=== PATIENT | female | born 1960 | race Caucasian/White ===

== ENCOUNTER → 2020-06-18 14:17 | Outpatient (BNVA) | payer BC, SELFPAY | PROVIDERS: Family Provider Nurse Practitioner Family; PCP Registered Nurse; Referring Provider Registered Nurse; Visit Provider Urology | DX: R33.9 Retention of urine, unspecified (principal); N39.0 Urinary tract infection, site not specified | CPT/HCPCS: 81003; 87086 ==

== ENCOUNTER → 2020-07-31 10:12 | Outpatient (BNVA) | payer BC, SELFPAY | PROVIDERS: Family Provider Nurse Practitioner Family; PCP Registered Nurse; Visit Provider Urology | DX: N39.0 Urinary tract infection, site not specified (principal); R39.15 Urgency of urination | CPT/HCPCS: 81003 ==

== ENCOUNTER → 2021-02-28 09:05 | Outpatient (BNVA) | payer BC, SELFPAY | PROVIDERS: Family Provider Nurse Practitioner Family; PCP Registered Nurse; Visit Provider Surgery | DX: R15.9 Full incontinence of feces (principal); Z20.822 Contact with and (suspected) exposure to COVID-19 | CPT/HCPCS: 87635 ==

== ENCOUNTER 2021-03-06 06:46 | Day surgery (SDC) | payer BC, SELFPAY ==
[2021-03-01 11:49] VITALS: BMI 23.8
--- NOTE | 2021-03-06 06:43 | P.HP_ITS ---
Same Day Surgery H&P Indication for Procedure/HPI DATE OF PROCEDURE: March 06, 2021 CHIEF COMPLAINT/INDICATIONFOR SURGICAL PROCEDURE: Loose stools PREOP DIAGNOSIS: Change in bowel habits PLANNED PROCEDRUE: Operation Date: 03/06/21 07:30 Proposed Procedures p Colonoscopy 99827 R15.9(Not Applicable) - Jose Angel Purcell MD This is a 60 years old female patient referred to my practice with history of loose stools, she reports accidents intermittently where she is not able to have controlled on her feces and she also reports issues with her bladder as well. Patient mentioned that she had a 10 pounds baby and that was many years ago and she thinks that caused some issues with her bowel control.Patient otherwise denies any perineal or perianal or anal traumas.Never had a colonoscopy. She lost about 16 pounds unintentionally and she denies any bleeding per rectum or history of colon cancer. Patient reports that never had any kind of work-up for potential fecal incontinence or otherwise. Interim history 02/26/2021 Patient comes today for colonoscopy. ROS All systems have been reviewed negative except as per the above or per problem list Medications/Allergies* Home Medications Medication Instructions Recorded Confirmed Type lactobacillus combination no.8 3 3,000 mmu cells PO DAILY 07/31/20 03/01/21 History billion cell capsule Allergies/Adverse Reactions Allergy/AdvReac Type Severity Reaction Status Date / Time alfuzosin Allergy Unknown Unknown Verified 03/06/21 07:40 cortisone Allergy Unknown ALGY-Hives Verified 03/06/21 07:40 tamsulosin Allergy Unknown ADR/ALGY-Pa Verified 03/06/21 07:40 lpitations shrimp Allergy ADR-Nausea Verified 03/06/21 07:40 Pertinent History/Comorbid Conditions* Medical History (Updated 09/21/20 @ 13:26 by Jose Angel Purcell MD) Recurrent UTI Urgency of urination Family History (Updated 06/18/20 @ 09:44 by Veena Siddiqui RN) Diabetes Mother Chronic kidney disease (CKD) Mother Father Cancer Mother liver Father prostate Social History Smoking and tobacco status: never smoked Alcohol intake: never Current occupational status: employed Pertinent Exam Findings alert, oriented x 3, clear to auscultation bilaterally, regular rate & rhythm and procedure specific exam findings (Abdominal examination nontender nondistended soft) Recommendations Surgery/Procedure today (Colonoscopy with possible biopsy) Other Plans: Plan of care; After thorough history and physical examination and reviewing the chart, plan to perform screening colonoscopy. I discussed with the patient in details the risks,benefits,alternatives and indications.The risk of aspiration, bleeding, soft tissue injury, perforation of the colon and other potential concomitant complications were explained to the patient in details,also the potential need for Laproscoy/Laparotomy to repair any related complications including but not limited to colectomy and or Closotomy.The patient understood this well and did agree to proceed. Rationale was carefully and clearly discussed with the patient.Appropriate informed consent have been reviewed and signed All questions have been answered and all concerns have been addressed to patient's satisfaction. 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
--- NOTE | 2021-03-06 06:59 | ANES.PREANE2 ---
Pre-Anesthetic Assessment Pre-Anesthetic Assessment: Height/Weight: Height 1.57 m Weight 58.967 kg Preop Diagnosis: Change in bowel habits Proposed Procedure: Operation Date: 03/06/21 07:30 Proposed Procedures p Colonoscopy 06983 R15.9(Not Applicable) - Jose Angel Purcell MD Familial anesthetic complications: mother had PONV Was Beta Ranjana taken within 24 hours: N/A Was Clonidine taken within 24 hours: N/A Last intake: > 8 hrs Social: Social History: No alcohol and No tobacco Exam: Pre-Anes Outpt Exam: alert, oriented x 3, clear to auscultation bilaterally and regular rate & rhythm Airway: Cervical ROM: WNL MP: 1 Dentition: Partials Anesthetic Plan: ASA status: 1 Anesthesia: MAC Risk of > 500 ml blood loss (7ml/kg in children): No PFSH Anesthesia PFSH: Medical History Recurrent UTI Urgency of urination Family History Mother Cancer liver Diabetes Chronic kidney disease (CKD) Father Cancer prostate Chronic kidney disease (CKD) Social History Smoking and tobacco status: never smoked Alcohol intake: never Current occupational status: employed Data Anesthesia Cardiac Studies: No Data to Display
[2021-03-06 07:09] VITALS: BP 141/88; PULSE 76; RESP 16; TEMP 36.5; O2SAT 98
[2021-03-06] MEDS: sodium chloride 0.9% 1,000 ML 30 ML IV (07:25)
--- NOTE | 2021-03-06 07:29 | ECG_ITS ---
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 Measurements Intervals [place] Rate: 63 P: 34 NH: 153 QRS: 67 QRSD: 114 T: 43 QT: 411 QTc: 422 Interpretive Statements SINUS RHYTHM POSSIBLE RIGHT VENTRICULAR CONDUCTION DELAY [RSR (QR) IN V1/V2] INTERPRETATION BASED ON A DEFAULT AGE OF 40 YEARS No previous ECG available for comparison Electronically Signed On 03-06-2021 21:28:22 CDT by Edith Lewis M.D. [id number]
[2021-03-06 07:30] VITALS: BP 125/64; PULSE 69; RESP 16; O2SAT 94
[2021-03-06 07:38] LABS: Glucose Point of Care 137 mg/dL (70-110)
--- NOTE | 2021-03-06 07:45 | PC.NURSE ---
Vital signs were normal upon arrival. No c/o pain. After attempting IV, pt needed to use restroom. Nurses went to check on pt. Pt was unresponsive, cold, clammy, and pale. Nurses called rapid response. EKG obtained per anesthesia. New set of vitals obtained. Results of EKG and new vitals given to Dr. Purcell and anesthesia. Both doctors say OK to proceed. Pt reports feeling slightly queasy but no pain. Denies need for nausea medication at this time.
[2021-03-06 07:58] VITALS: BP 98/51; PULSE 65; RESP 18; TEMP 36.1; O2SAT 94
[2021-03-06 08:10] VITALS: BP 114/76; PULSE 62; RESP 18; TEMP 36.1; O2SAT 100
--- NOTE | 2021-03-06 09:06 | ANE.PACU2 ---
Inpatient post-anesthesia follow up: Airway intact: Yes Vital signs: Temperature 97.0 F Pulse Rate 62 Respiratory Rate 18 Blood Pressure 114/76 Pulse Oximetry 100 Oxygen Delivery Me thod Room Air Oxygen Flow Rate Fraction of Inspir ed Oxygen Hydration adequate: Yes Mental status: Baseline
== END 2021-03-06 08:42 | disposition home or self-care (01) ==
PROVIDERS: PCP Nurse Practitioner Family; Visit Provider Surgery
PROC: 0DJD8ZZ Inspection of Lower Intestinal Tract, Via Natural or Artificial Opening Endoscopic (ICD-10-PCS; CPT 45378; principal; 2021-03-06 07:30)
DX: R19.4 Change in bowel habit (principal); R15.9 Full incontinence of feces; Z87.440 Personal history of urinary (tract) infections; Z83.3 Family history of diabetes mellitus
CPT/HCPCS: 36416; 45378; 82962; 93005; 96360; J2704; J3490; J7030

== ENCOUNTER → 2021-03-27 13:36 | Outpatient (BNVA) | payer BC, SELFPAY | PROVIDERS: PCP Nurse Practitioner Family; Visit Provider Urology | DX: R39.15 Urgency of urination (principal) | CPT/HCPCS: 81003 ==

== ENCOUNTER 2021-11-01 10:50 | Outpatient (CLI) | payer BC, SELFPAY ==
--- NOTE | 2021-11-01 10:57 | MM_ITS ---
WS: [id number] VIEWS: MLO and CC views both breasts. 3D digital tomosynthesis is also included in this exam. No prior exams. Findings: There was no sign of mass, architectural distortion or suspicious calcification in either breast. Sc attered fibroglandular densities MM/[place] [id number] Impression: BI-RADS: 2-Benign FOLLOW-UP: 1 Year Follow-up This mammogram was also analyzed by the Computer Aided Detection System R2 Imag e Interventional Radiology Technologist.
== END 2021-11-01 10:51 | disposition home or self-care (01) ==
LOC: RAD 10:50
PROVIDERS: PCP Nurse Practitioner Family; Visit Provider Nurse Practitioner Family
DX: Z12.31 Encounter for screening mammogram for malignant neoplasm of breast (principal)
CPT/HCPCS: 77063; 77067

== ENCOUNTER → 2022-10-10 14:30 | Outpatient (BNVA) | payer OTHER, SELFPAY | PROVIDERS: PCP Nurse Practitioner Family; Referring Provider Nurse Practitioner Family; Visit Provider Obstetrics & Gynecology | DX: R39.15 Urgency of urination (principal) | CPT/HCPCS: 81000 ==

== ENCOUNTER → 2022-11-10 08:02 | Outpatient (BNVA) | payer OTHER, SELFPAY | PROVIDERS: PCP Nurse Practitioner Family; Visit Provider Obstetrics & Gynecology | DX: R30.0 Dysuria (principal) | CPT/HCPCS: 81000 ==